=== PATIENT | male | born 1975 | race Caucasian/White ===

== ENCOUNTER 2016-06-06 10:50 | Emergency (ER) | payer BC ==
[~2016-06-06] VITALS: Ht 188 cm; Wt 91.1 kg
[2016-06-06 11:00] VITALS: TEMP 36.8; Ht 188 cm; Wt 91.1 kg
[2016-06-06] MEDS ORDERED: KETOROLAC TROMETHAMINE 30 MG/ML VIAL IV STA (11:47)
[2016-06-06] MEDS ORDERED: SODIUM CHLORIDE 0.9% 1000ML 1,000 ML IV STA (11:47)
--- NOTE | 2016-06-06 12:03 | DIAGNOSTIC IMAGING REPORT ---
CHEST ONE VIEW PORTABLE CLINICAL HISTORY: cough COMPARISON STUDY: 01/08/2007 FINDINGS: The cardiac and mediastinal contours are normal. There is no evidence of focal pulmonary consolidation. There is no evidence of failure. No pleural effusions are visualized.[ IMPRESSION: No active disease in the chest. Electronically signed by: Wicho King M.D. 06/06/2016 12:02 PM Dictated Date/Time: 06/06/2016 12:02 PM
[2016-06-06 12:12] VITALS: O2SAT 99
[2016-06-06 12:21] LABS: BASO % 0.3 %; BASO ABS # 0.03 K/uL (0-0.2); COMPLETE YES; EOS % 1.4 %; IG% 0.2 %; LYMPH % 12.5 %; LYMPH ABS # 1.26 K/uL (1.2-3.4); MEAN CELL VOLUME 84.7 fL (80-100); MEAN CORPUSCULAR HEMOGLOBIN 29.4 pg (25-34); MEAN CORPUSCULAR HGB CONC 34.8 g/dl (32-36); MEAN PLATELET VOLUME 10.4 fL (7.4-10.4); MONO % 11.4 %; NEUT % 74.2 %; PLATELET COUNT 287 K/uL (130-400); RED BLOOD COUNT 4.72 M/uL (4.7-6.1); WHITE BLOOD COUNT 10.07 K/uL (4.8-10.8)
[2016-06-06 12:34] LABS: BUN/CREATININE RATIO 12.6 (10-20); CALCIUM 8.8 mg/dl (8.5-10.1); CREATININE 0.97 mg/dl (0.60-1.40); POTASSIUM 3.5 mmol/L (3.5-5.1)
[2016-06-06 12:37] LABS: ALB/GLOB RATIO 1.1 (0.9-2)
[2016-06-06] MEDS ORDERED: OXYC-106 PO (12:43)
[2016-06-06] MEDS ORDERED: AMOX875T PO (12:43)
[2016-06-06] MEDS ORDERED: ACETAMINOPHEN 500 MG TAB PO STA (12:46)
[2016-06-06] MEDS ORDERED: HYDR-4383 PO (12:52)
[2016-06-06] MEDS ORDERED: HYDR-4452 PO (12:52)
--- NOTE | 2016-06-06 13:29 | EMERGENCY ROOM VISIT NOTE ---
History First contact with patient: 11:29 Chief Complaint: FLU LIKE SX Stated Complaint: FLU History of Present Illness The patient is a 40 year old male who presents to the Emergency Room with complaints of flulike symptoms for the past 2 days. He reports he has had a sore throat, nasal congestion and body aches. He states that he has had difficulty sleeping due to the symptoms. He does report he has had a mild cough. He has had a few episodes of diarrhea. The patient states that his symptoms have been progressively worsening. He does report that he spoke with a telemedicine provider a few days ago and he prescribed him Augmentin for a possible sinus infection. He has been taking this as prescribed. The patient states that he has been sweating, but has not taken his temperature. He did not receive a flu vaccine this year. He denies any nausea, vomiting, headache, neck pain, abdominal pain, chest pain or shortness of breath. Review of Systems A complete 10-point Review of Systems was discussed with the patient, with pertinent positives and negatives listed in the History of Present Illness. All remaining Review of Systems questions can be considered negative unless otherwise specified. Past Medical/Surgical History Medical Problems: (1) Accident at workplace (2) Adjustment disorder (3) Chronic back pain (4) DDD (degenerative disc disease) (5) Migraine (6) Pelvic fracture Surgical Problems: (1) S/P ACL repair (2) S/P appendectomy Family History Patient reports no known family medical history. Social History Smoking Status: Current Every Day Smoker Alcohol Use: none Drug Use: none Marital Status: in relationship Occupation Status: employed Current/Historical Medications Scheduled Amoxicillin & Pot Clavulanate (Augmentin 875-125 mg), 1 TAB PO BID Hydrocodone/Acetaminophen ([place] 10/325 Tab), 1 TAB PO Q4H Allergies Coded Allergies: No Known Allergies (Verified , 06/06/16) Physical Exam Vital Signs Date Time Temp Pulse Resp B/P Pulse Ox O2 Delivery O2 Flow Rate FiO2 06/06/16 13:53 85 18 109/70 97 06/06/16 12:57 73 18 136/83 98 Room Air 06/06/16 12:21 79 06/06/16 12:12 86 18 120/76 98 Room Air 06/06/16 12:12 99 Room Air 06/06/16 11:00 36.8 111 18 126/81 96 Room Air Physical Exam VITALS: Vitals are noted on the nurse's note and reviewed by myself. Vital signs stable. GENERAL: This is a 40-year-old male, in no acute distress, nondiaphoretic, well- developed well-nourished. SKIN: Capillary reflex less than 2 seconds. HEENT: Normocephalic. PERRLA. EOMI. Nares patent. Mucous membranes moist. Neck is supple without nuchal rigidity. No meningismus. HEART: Regular rate and rhythm without murmurs gallops or rubs. LUNGS: Clear to auscultation bilaterally without wheezes, rales or rhonchi. No retractions or accessory muscle use. ABDOMEN: Positive bowel sounds x 4. Soft, nontender to palpation. NEURO: Patient was alert and oriented to person place and time. Medical Decision & Procedures ER Provider Diagnostic Interpretation: CHEST ONE VIEW PORTABLE CLINICAL HISTORY: cough COMPARISON STUDY: 01/08/2007 FINDINGS: The cardiac and mediastinal contours are normal. There is no evidence of focal pulmonary consolidation. There is no evidence of failure. No pleural effusions are visualized.[ IMPRESSION: No active disease in the chest. Laboratory Results 06/06/16 12:01 Red Blood Count 4.72, Mean Corpuscular Volume 84.7, Mean Corpuscular Hemoglobin 29.4, Mean Corpuscular Hemoglobin Concent 34.8, Mean Platelet Volume 10.4, Neutrophils (%) (Auto) 74.2, Lymphocytes (%) (Auto) 12.5, Monocytes (%) (Auto) 11.4, Eosinophils (%) (Auto) 1.4, Basophils (%) (Auto) 0.3, Neutrophils # (Auto ) 7.47, Lymphocytes # (Auto) 1.26, Monocytes # (Auto) 1.15, Eosinophils # (Auto ) 0.14, Basophils # (Auto) 0.03 06/06/16 12:01 Test 06/06/16 12:01 06/06/16 12:05 06/06/16 12:08 White Blood Count 10.07 K/uL (4.8-10.8) Red Blood Count 4.72 M/uL (4.7-6.1) Hemoglobin 13.9 g/dL (14.0-18.0) Hematocrit 40.0 % (42-52) Mean Corpuscular Volume 84.7 fL (80-100) Mean Corpuscular Hemoglobin 29.4 pg (25-34) Mean Corpuscular Hemoglobin Concent 34.8 g/dl (32-36) Platelet Count 287 K/uL (130-400) Mean Platelet Volume 10.4 fL (7.4-10.4) Neutrophils (%) (Auto) 74.2 % Lymphocytes (%) (Auto) 12.5 % Monocytes (%) (Auto) 11.4 % Eosinophils (%) (Auto) 1.4 % Basophils (%) (Auto) 0.3 % Neutrophils # (Auto) 7.47 K/uL (1.4-6.5) Lymphocytes # (Auto) 1.26 K/uL (1.2-3.4) Monocytes # (Auto) 1.15 K/uL (0.11-0.59) Eosinophils # (Auto) 0.14 K/uL (0-0.5) Basophils # (Auto) 0.03 K/uL (0-0.2) RDW Standard Deviation 41.9 fL (36.4-46.3) RDW Coefficient of Variation 13.6 % (11.5-14.5) Immature Granulocyte % (Auto) 0.2 % Immature Granulocyte # (Auto) 0.02 K/uL (0.00-0.02) Anion Gap 8.0 mmol/L (3-11) Est Creatinine Clear Calc Drug Dose 115.4 ml/min Estimated GFR () 111.1 Estimated GFR (Non- 95.9 BUN/Creatinine Ratio 12.6 (10-20) Calcium Level 8.8 mg/dl (8.5-10.1) Total Bilirubin 0.3 mg/dl (0.2-1) Aspartate Amino Transf (AST/SGOT) 13 U/L (15-37) Alanine Aminotransferase (ALT/SGPT) 22 U/L (12-78) Alkaline Phosphatase 70 U/L (45-117) Total Protein 7.2 gm/dl (6.4-8.2) Albumin 3.7 gm/dl (3.4-5.0) Globulin 3.5 gm/dl (2.5-4.0) Albumin/Globulin Ratio 1.1 (0.9-2) Monoscreen NEG (NEG) Influenza Type A Antigen Neg for Influ A (NEG) Influenza Type B Antigen Neg for Influ B (NEG) Medications Administered Medications (Trade) Dose Ordered Sig/Brian Route Start Time Stop Time Status Last Admin Dose Admin Sodium Chloride (Nss 1000ml) 1,000 ml @ 999 mls/hr Q1H1M STAT IV 06/06/16 11:47 06/06/16 12:47 DC 06/06/16 12:09 999 MLS/HR Ketorolac Tromethamine (Toradol Inj) 30 mg NOW STAT IV 06/06/16 11:47 06/06/16 11:49 DC 06/06/16 12:09 30 MG Acetaminophen (Tylenol Tab) 1,000 mg NOW STAT PO 06/06/16 12:46 06/06/16 12:47 DC 06/06/16 12:50 1,000 MG Medical Decision Differential diagnosis includes influenza, viral syndrome, pneumonia, mononucleosis, sinusitis, strep pharyngitis, among others. The patient was evaluated as above. Labs were drawn and IV access was obtained. Imaging studies were performed and read by radiology as above. The patient was medicated with 2 L normal saline solution, 30 g Toradol IV and 1 g Tylenol. The patient was reassessed multiple times during their stay in the emergency department and remained in stable condition. The patient is a 40-year-old male who presents today complaining of flulike symptoms. He was afebrile on examination. Labs revealed no leukocytosis, anemia or concerning electrolyte abnormalities. Chest x-ray did not show evidence of pneumonia. Testing for influenza, mononucleosis and strep were negative. The patient did feel better after IV fluids, Toradol and Tylenol. He was informed that he most likely has a viral flulike illness. Since he did start the Augmentin for a possible sinus infection, I did recommend that he continue this medication. He was instructed to follow-up with his primary care provider for further evaluation or return here for worsening symptoms. Based on the patient's presentation, lab results, and imaging studies, I feel the patient is stable for outpatient treatment. Discharge instructions were reviewed with the patient. The patient verbalized understanding of my assessment and treatment plan and was discharged home in good condition. Impression Primary Impression: Influenza-like symptoms Departure Information Dispostion Home / Self-Care Condition GOOD Referrals Oneida Billy M.D. (MEDICAL) (PCP) Patient Instructions My [facility] Additional Instructions Rest and drink plenty of fluids. For pain control, you can use the following [id number] medicines (if >12 yo): - Regular strength (325mg/tab) Tylenol (acetaminophen) 2 tabs every 4-6 hours as needed. Do not exceed 12 tablets in a 24 hour period. Avoid taking more than 4 grams (4000 mg) of Tylenol per day. This includes any other sources of acetaminophen you may take on a regular basis. - Regular strength (200 mg/tab) Advil (ibuprofen) 1-2 tabs every 4-6 hours as needed. Do not exceed a dose of 3200 mg per day. Follow up with the primary care provider within one week.
[2016-06-06 13:53] VITALS: BP 109/70; PULSE 85; O2SAT 97
== END 2016-06-06 13:55 | disposition home or self-care (01) ==
LOC: C.EDB 10:51 → C.EDC 13:55
DX: J02.9 Acute pharyngitis, unspecified (principal); F17.210 Nicotine dependence, cigarettes, uncomplicated

== ENCOUNTER 2016-06-17 12:05 | Emergency (ER) | payer BC ==
[~2016-06-17] VITALS: Ht 188 cm; Wt 98.0 kg
[~2016-06-17 12:05] MED LIST: AMOX875T PO; HYDR-4383 PO
[2016-06-17 12:10] VITALS: BP 125/90; PULSE 85; TEMP 36.7; O2SAT 97; Ht 188 cm; Wt 98.0 kg
[2016-06-17] MEDS ORDERED: OXYCODONE/ACETAMINOPHEN 5-325 TAB PO ONE (13:15)
--- NOTE | 2016-06-17 13:47 | DIAGNOSTIC IMAGING REPORT ---
L-SPINE MIN 4 VIEWS ROUTINE CLINICAL HISTORY: Fall. Lumbar back pain. COMPARISON: Lumbar spine radiograph November 23, 2015. FINDINGS: Alignment of the lumbar spine is anatomic. Vertebral body heights are maintained. There is no fracture or suspicious lesion. The appearance of the lumbar spine is unchanged. Mild multilevel degenerative changes are present. IMPRESSION: 1. No acute lumbar spine fracture or subluxation. 2. Mild multilevel degenerative changes of the lumbar spine. Electronically signed by: Yoan Acharya M.D. 06/17/2016 1:46 PM Dictated Date/Time: 06/17/2016 1:41 PM
--- NOTE | 2016-06-18 12:47 | EMERGENCY ROOM VISIT NOTE ---
ED Visit Note First contact with patient: 12:34 Chief Complaint: Lower back pain. History of Present Illness: Mr. Yates is a 40-year-old white male who ambulates into the ED complaining of lumbar back pain. Historically patient reports she has a history of chronic back pain and is followed by pain management. Reviewing his records I see that in mid to late May she was prescribed a 30 day supply of fentanyl patches and [place] for his pain. Patient reports approximately 3 hours ago he was at home cleaning the gutters and fell off a six-foot ladder onto his back. He reports since that time he has been having diffuse lower back pain. He describes his pain as a sharp sensation. He has difficulty placing the specific location of pain but primarily on evaluation his pain seems to be between the L4 and S1 area over the spine and into the paraspinous culture. He rates his discomfort 8/10. His pain worsens with all movement of the back and palpation. He has not identified any alleviating factors related to the pain. He does report the pain does radiate into the back of the left thigh. He has not taken any medications for pain prior to arrival at the hospital. He denies any associated symptoms from the fall or the injury including loss of consciousness at the time of the fall, any signs of head injury since the fall, neck pain, chest pain, shortness of breath, abdominal pain, nausea, vomiting, extremity weakness/numbness/tingling, genital paresthesias, bowel and bladder dysfunction. Review of Systems: As noted above in history of present illness. All body systems were reviewed and found to be negative as noted above. Past Medical History: As previously noted, unspecified knee surgeries. Current Medications: As previously noted. Allergies to Medications: Patient denies. Social History: Patient is currently employed; he feels safe in his home environment; he admits to tobacco use and denies alcohol use. Physical Examination: Vital Signs: Date Time Temp Pulse Resp B/P Pulse Ox O2 Delivery O2 Flow Rate FiO2 06/17/16 12:10 36.7 85 20 125/90 97 Room Air GENERAL: 40-year-old male in moderate distress due to pain, nontoxic-appearing, afebrile and hemodynamically stable. NEUROLOGICAL: Awake, alert and oriented to person, place and time. Answering questions appropriately and following commands. Normal gait. Good hand eye coordination. No focal motor sensory deficits. Good short-term and long-term recall. Cranial nerves II through XII grossly intact. SKIN: Warm, dry and pink. No soft tissue eruptions or trauma noted. HEENT: Atraumatic and normocephalic. PERRLA. No observable facial trauma. No malocclusion. Airway patent. Speech is normal. Trachea midline. No jugular venous distention. BACK: No tenderness over the bony cervical and thoracic spine. Full range of motion of the cervical spine. No CVA tenderness. Moderate tenderness over the L4 through S1 area over the bony spine without crepitus, swelling, step-offs or bony deformity. There is also moderate tenderness throughout the bilateral paraspinous musculature in this area without obvious spasm. Decreased range of motion in all movements of the waist. He was not able to assist in a straight leg raise test due to his discomfort. THORAX: Lungs sounds are clear to auscultation and equal bilaterally with symmetrical chest wall. No crepitus, tenderness, subcutaneous air or deformities noted. HEART: Regular rate and rhythm. No gallops, rubs or murmurs are appreciated. ABDOMEN: Flat, soft and nontender. Positive bowel sounds in all quadrants. No guarding, rigidity or organomegaly. PELVIS: Stable and nontender to compression and rock. EXTREMITIES: Moves all extremities well on command and with purpose. All distal neurovascular statuses are intact and equal bilaterally. Lower Extremities: No bony tenderness over the hips, thighs, knees, ankles or feet. 4 /5 muscle strength in flexion, extension, abduction and abduction of the hips, flexion and extension of the knees and plantar flexion and dorsiflexion of the ankles. 2+ patellar and Achilles deep tendon reflexes intact and equal bilaterally. He was able to distinguish light sensations through all dermatomes of the feet. ED Course: Patient is assessed as noted above. Patient was given one 5/325 mg Percocet tablet by mouth for pain. Lumbar Spine X-Rays: Were reviewed by myself and read by the radiologist showing no acute fractures or subluxations. Multiple mild degenerative changes throughout the spine. Patient was educated about tonight's findings and instructed on his treatment plan; he verbalizes understanding and agreement with this plan. Clinical Impression: Lumbar back pain. Status post fall. Disposition: Patient discharged home in stable condition; prior to departure he was reassessed and subjectively reported he was feeling better and rated his discomfort 4/10. Plan: Patient was encouraged to continue his current medications as prescribed. Patient was encouraged to also alternate his Vicodin prescription with ibuprofen for inflammation. Patient was encouraged use ice on areas of pain for 5 times a day for 20-30 minutes. 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 Patient is encouraged return to ED for worsening pain, leg weakness/numbness/ tingling, genital paresthesias, bowel and bladder dysfunction or any new/ concerning symptoms.
== END 2016-06-17 14:22 | disposition home or self-care (01) ==
LOC: C.EDB 12:06 → C.EDD 14:22
DX: M54.5 Low back pain (principal); W11.XXXA Fall on and from ladder, initial encounter; Y92.018 Other place in single-family (private) house as the place of occurrence of the external cause; Y93.H9 Activity, other involving exterior property and land maintenance, building and construction; G89.29 Other chronic pain; F17.200 Nicotine dependence, unspecified, uncomplicated

== ENCOUNTER 2016-07-21 07:13 | Emergency (ER) | payer BC ==
[~2016-07-21] VITALS: Ht 188 cm; Wt 89.8 kg
[2016-07-21 07:19] VITALS: TEMP 36.8; Ht 188 cm; Wt 89.8 kg
[2016-07-21] MEDS ORDERED: HYDR-4383 PO (07:47)
--- NOTE | 2016-07-21 08:32 | DIAGNOSTIC IMAGING REPORT ---
CT OF THE CERVICAL SPINE WITHOUT CONTRAST CLINICAL HISTORY: Neck pain following fall. COMPARISON STUDY: Cervical spine radiographs June 16, 2005. TECHNIQUE: Helical axial images of the cervical spine were obtained without IV contrast. Sagittal and coronal reconstructions were viewed. FINDINGS: Alignment of the cervical spine is anatomic. Craniocervical junction is intact. There is no acute fracture within the cervical spine. Degenerative changes at the C1-C2 articulation are present. There is mild multilevel degenerative disc disease. There is no pneumothorax within visualized portions of the lung apices. IMPRESSION: No acute cervical spine fracture or subluxation. Electronically signed by: Yoan Acharya M.D. 07/21/2016 8:31 AM Dictated Date/Time: 07/21/2016 8:26 AM
[2016-07-21 08:55] VITALS: BP 114/70; PULSE 79; O2SAT 99
[2016-07-21] MEDS ORDERED: KETO10TA PO (08:57)
--- NOTE | 2016-07-21 16:00 | EMERGENCY ROOM VISIT NOTE ---
ED Visit Note First contact with patient: 07:25 Chief Complaint: Neck pain. History of Present Illness: Mr. Li is a 40-year-old white male who ambulates into the ED complaining of right sided neck pain. Historically patient reports he denies any previous neck disease or surgeries. Patient reports 2 days ago he was cleaning out a garage with his son. A box approximately weighing 10-15 pounds fell on the left side of his head and flexed his neck to the right. He reports since that time he has been having right sided neck pain. Currently he describes his pain as a stabbing sensation. His pain is constant. He rates his discomfort 8/10. The pain is nonradiating. The prominent fits his pain is located in the trapezius muscle between the shoulder and the neck. He reports he is taking prescribed Vicodin without relief of his discomfort. His pain worsens with palpation and all movements of the cervical spine. He has not identified any alleviating factors related to the pain. Associated with his pain he reports he has paresthesias in the right hand. She denies any loss of consciousness at the time of the injury and since the injury he has had no signs of head injury, chest pain, shortness of breath, abdominal pain, nausea/vomiting, upper extremity weakness. Review of Systems: As noted above in history of present illness. 8 body systems were reviewed and found to be negative as noted above. Past Medical History: (1) Accident at workplace (2) Adjustment disorder (3) Chronic back pain (4) DDD (degenerative disc disease) (5) Migraine (6) Pelvic fracture Surgical Problems: (1) S/P ACL repair (2) S/P appendectomy Current Medications: Medications Dose Route/Sig Max Daily Dose Days Date Category Toradol (Ketorolac Tromethamine) 10 Mg Tab 10 Mg PO Q6 PRN 07/21/16 Rx [place] 10/325 Tab (Acetaminophen/Hydrocodone Bitart) 1 Tab Tab 1 Tab PO 5XD 07/21/16 Reported Allergies to Medications: Patient denies. Social History: Patient is currently employed; he feels safe in his home environment; he admits to tobacco use. Physical Examination: Vital Signs: Date Time Temp Pulse Resp B/P Pulse Ox O2 Delivery O2 Flow Rate FiO2 07/21/16 08:55 79 18 114/70 99 Room Air 07/21/16 07:19 36.8 80 18 135/80 100 Room Air GENERAL: 40-year-old male in mild to moderate distress due to pain, nontoxic- appearing, afebrile and hemodynamically stable. NEUROLOGICAL: Awake, alert and oriented to person, place and time. Answering questions appropriately and following commands. Normal gait. Good hand eye coordination. No focal motor or sensory deficits. SKIN: Warm, dry and pink. No soft tissue eruptions or trauma noted. BACK: Mild tenderness over the C4 area of the bony cervical spine and no tenderness over the thoracic spine. There is moderate tenderness throughout the upper portion of the trapezius with no palpable spasm. Full range of motion of the cervical spine. . THORAX: Lungs sounds are clear to auscultation and equal bilaterally with symmetrical chest wall. UPPER EXTREMITIES: No gross bony deformity. No tenderness in the shoulders, elbows, forearms or wrists. 4/5 muscle strength in all movements of the shoulders, elbows, forearms and wrists. 2+ bicipital, tricipital and brachial radialis deep tendon reflexes intact and equal bilaterally. Distal pulses and capillary refill are intact. Patient does perceive paresthesias along the ulnar distribution of the hand but was able to appreciate light sensations. ED Course: Patient is assessed as noted above. Patient was placed in a rigid cervical collar. Cervical Spine CT without Contrast: Was reviewed by myself and read by the radiologist showing no acute fractures or subluxations. Mild to moderate degenerative changes throughout the cervical spine. Patient had his collar removed. Patient was then placed in a soft cervical collar. Patient was educated about today's findings and instructed on his treatment plan ; he verbalizes understanding and agreement with this plan. Clinical Impression: Right sided neck pain. Decision-Making: Initially my differential diagnosis I considered contusion, muscle strain, muscle spasm, vertebral fracture, herniated disc and other causes. Disposition: Patient discharged home in stable condition; prior to departure he was reassessed and subjectively reported he was feeling much better and rated his discomfort 3/10. Plan: Patient was placed in a cervical collar and encouraged to use it for 3 or 4 days until pain-free but not to use it while sleeping, showering/bathing or when eating. Additionally he was encouraged to remove the collar and do simple range of motion exercises for 5 times a day. Patient was prescribed Toradol 10 mg; alternating with his Vicodin for pain. Patient was encouraged use ice on his neck 5-6 times a day for 20-30 minutes. Patient was encouraged to follow-up with his PCP for recheck if no better in 3- 4 days. Patient was signed off work for 3 days and encouraged to have return to work instructions from his PCP. Patient was encouraged return the ED for worsening/uncontrolled pain, worsening hand tingling, arm/hand weakness or any new/concerning symptoms.
== END 2016-07-21 09:05 | disposition home or self-care (01) ==
LOC: C.EDB 07:14 → C.EDA 09:05
DX: M54.2 Cervicalgia (principal); W22.8XXA Striking against or struck by other objects, initial encounter; Y92.015 Private garage of single-family (private) house as the place of occurrence of the external cause; G43.909 Migraine, unspecified, not intractable, without status migrainosus; G89.29 Other chronic pain; Z72.0 Tobacco use

== ENCOUNTER → 2016-09-11 | Outpatient (CLI) | payer BC ==
[~2016-09-11] MED LIST changes: -AMOX875T PO; +KETO10TA PO
--- NOTE | 2016-09-11 08:20 | DIAGNOSTIC IMAGING REPORT ---
CERVICAL SPINE MRI HISTORY: Cervical radiculopathy CERVICAL SPINE PAIN TECHNIQUE: Multiplanar multisequence MRI of the cervical spine was performed without the use of contrast. COMPARISON STUDY: None. FINDINGS: Signal characteristics the vertebral bodies are unremarkable. Signal characteristics the cervical cord are within normal limits. Posterior bulging disc C5-C6 based on the sagittal images. C2-C3: No significant central canal or neural foraminal narrowing. C3-C4: No significant central canal or neural foraminal narrowing. C4-C5: No significant central canal or neural foraminal narrowing. C5-C6: Broad-based bulging disc. Partial effacement anterior subarachnoid space. Moderate narrowing of right and to lesser extent left neural foramina. C6-C7: No significant central canal or neural foraminal narrowing. C7-T1: No significant central canal or neural foraminal narrowing. IMPRESSION: 1. Broad-based bulging disc C5-C6 with moderate narrowing of the right neuroforamina. 2. Otherwise negative study Electronically signed by: Sandeep Ceja M.D. 09/11/2016 8:18 AM Dictated Date/Time: 09/11/2016 8:13 AM
== END | disposition home or self-care (01) ==
LOC: C.MRI 07:14
PROVIDERS: ATTEND Orthopaedic Surgery Orthopaedic Surgery of the Spine
DX: M50.122 Cervical disc disorder at C5-C6 level with radiculopathy (principal)

== ENCOUNTER 2016-10-14 05:27 | Observation (INO) | payer BC ==
[2016-09-29 13:55] VITALS: BMI 26.0
--- NOTE | 2016-09-29 14:22 | PAT Medication Instructions ---
Service Date Sep 29, 2016. Current Home Medication List Hydrocodone/Acetaminophen ([place] 10/325 Tab), 1 TAB PO 5XD PRN for Pain Medication Instructions For Your Scheduled Surgery - Take the following medications the morning of surgery with a sip of water OTHERWISE NOTHING TO EAT OR DRINK AFTER MIDNIGHT: Hydrocodone/Acetaminophen ([place] 10/325 Tab), 1 TAB PO 5XD PRN for Pain (may take if needed up to 4 hours prior to surgery) If you have any questions please call us at [phone] or [phone] or [phone]
[2016-09-29 15:04] LABS: BASO % 0.9 %; COMPLETE YES; EOS % 1.5 %; IG% 0.2 %; LYMPH % 22.3 %; LYMPH ABS # 2.47 K/uL (1.2-3.4); MEAN CELL VOLUME 87.4 fL (80-100); MEAN CORPUSCULAR HEMOGLOBIN 29.5 pg (25-34); MEAN CORPUSCULAR HGB CONC 33.7 g/dl (32-36); MEAN PLATELET VOLUME 10.4 fL (7.4-10.4); MONO % 5.6 %; NEUT % 69.5 %; PLATELET COUNT 352 K/uL (130-400); RED BLOOD COUNT 4.92 M/uL (4.7-6.1); WHITE BLOOD COUNT 11.06 K/uL (4.8-10.8)
[2016-09-29 16:10] LABS: BUN/CREATININE RATIO 15.1 (10-20); CALCIUM 8.9 mg/dl (8.5-10.1); CREATININE 0.93 mg/dl (0.60-1.40); POTASSIUM 3.7 mmol/L (3.5-5.1)
[~2016-10-14] VITALS: Ht 188 cm; Wt 91.6 kg
[2016-10-14] VITALS (14 sets, daily range): BP systolic 108–128; BP diastolic 67–83; PULSE 57–85; TEMP 36.3–36.9; O2SAT 95–99; Ht 188 cm; Wt 91.6 kg
[~2016-10-14 05:27] MED LIST changes: -KETO10TA PO
[2016-10-14] MEDS ORDERED: CEFAZOLIN 2000 MG/60 ML D5W IV SCH (06:00)
[2016-10-14] MEDS ORDERED: LACTATED RINGER'S 1000ML 1,000 ML IV SCH (06:00)
[2016-10-14] MEDS ORDERED: CeleBREX 200 MG CAP PO SCH (06:00)
[2016-10-14] MEDS ORDERED: PREGABALIN 75 MG CAP PO SCH (06:00)
[2016-10-14] MEDS ORDERED: PROMETHAZINE HCL INJ 12.5 MG in SODIUM CHLORIDE 0.9% 50ML 50 ML IV PRN (06:30)
[2016-10-14] MEDS ORDERED: EpHEDrine SULFATE INJ 50 MG/ML AMP IV PRN (06:30)
[2016-10-14] MEDS ORDERED: ONDANSETRON INJ 2 MG/ML 2 ML VIAL IV PRN ×2 (06:30→09:30)
[2016-10-14] MEDS ORDERED: ATROPINE SULFATE 0.1 MG/ML 5ML SYR IV PRN (06:30)
[2016-10-14] MEDS ORDERED: BACITRACIN 50000 UNIT VIAL ONE (06:56)
[2016-10-14] MEDS ORDERED: THROMBIN 5000 UNITS KIT ONE (06:56)
[2016-10-14] MEDS ORDERED: PROPOFOL IV EMULSION 10 MG/ML 20 ML VIAL IV ONE (07:09)
[2016-10-14] MEDS ORDERED: DEXAMETHASONE SOD INJ 4 MG/ML VIAL ONE (07:09)
[2016-10-14] MEDS ORDERED: LIDOCAINE HCL 2% 2 ML VIAL (20MG/ML) ONE (07:09)
[2016-10-14] MEDS ORDERED: ONDANSETRON INJ 2 MG/ML 2 ML VIAL ONE ×2 (07:09→08:59)
[2016-10-14] MEDS ORDERED: MIDAZOLAM HCL 1 MG/ML 2ML VIAL ONE (07:09)
[2016-10-14] MEDS ORDERED: NEOSTIGMINE METHYLSULFATE 1 MG/ML 10ML VIAL ONE (07:09)
[2016-10-14] MEDS ORDERED: GLYCOPYRROLATE INJ 0.2 MG/ML VIAL ONE ×2 (07:09→08:59)
[2016-10-14] MEDS ORDERED: ROCURONIUM BROMIDE 10 MG/ML 5 ML VIAL ONE (07:09)
[2016-10-14] MEDS ORDERED: FENTANYL CITRATE INJ 50 MCG/1 ML 2 ML VIAL ONE (07:10)
--- NOTE | 2016-10-14 07:17 | History & Physical Bridge Note ---
H&P Re-Evaluation Bridge Note: I have examined the patient, reviewed the History & Physical and in the interval since the performance of the History & Physical I have noted the following changes of clinical significance: No changes noted
[2016-10-14] MEDS ORDERED: SCOPOLAMINE 1.5 MG TDSY TD ONE ×2 (07:20→07:30)
[2016-10-14] MEDS ORDERED: LARYING-O-JET KIT (LTA) ONE ×2 (07:52)
[2016-10-14] MEDS ORDERED: PHENYLEPHRINE 100MCG/ML 5ML SYR ONE (07:52)
[2016-10-14] MEDS ORDERED: HYDROmorphone INJ 2 MG/ML SYR/VIAL ONE ×2 (08:03→09:13)
[2016-10-14] MEDS ORDERED: SODIUM CHLORIDE 0.9% INJ 10 ML VIAL ONE (08:05)
--- NOTE | 2016-10-14 08:46 | [facility] Post Operative Brief Note ---
Immediate Operative Summary Operative Date Oct 14, 2016. Pre-Operative Diagnosis C5-6 disc herniation with faily severe radiculopathy Post-Operative Diagnosis C5-6 disc herniation with faily severe radiculopathy Procedure(s) Performed C5-C6 Anterior Cervical Discectomy and Fusion with Allograft and [place] Surgeon Dr Maco Canas D[place] Assistant Surgeon(s) None Estimated Blood Loss 7.5ML Findings same Specimens none per surgeon Dr. Maco Canas
--- NOTE | 2016-10-14 08:48 | [facility] Operative Report ---
Operative Report Operative Date Oct 14, 2016. 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 Anterior cervical discectomy and fusion with application of PEEK intervertevral spacer C5-6 with local autograft and DBM putty 2. Anterior instrumentation C5-6 with LDR blade plates Surgeon Dr Maco Canas [employer]lies Sales Surgeon(s) None Estimated Blood Loss 7.5ML Findings see below Specimens none per surgeon Dr. Maco Canas Drains 1 Complication(s) None Description of Procedure PROCEDURE: After identification of the patient and operative level, patient was brought to the OR where they underwent induction of general anesthesia. Patient was then positioned supine on the [facility] OR table with all bony prominences well padded. Care was taken to avoid pressure on all bony prominences. Arms tucked to the sides and well padded. Shoulders were taped distally. Anterior neck was sterilely prepped and draped in usual fashion. Antibiotics were administered. Timeout was performed. Level was confirmed. A transverse skin incision was made on the right side of the neck at the level of the cricoid cartilage. I divided the platysma in line with the incision and performed routine anterior cervical exposure, blunt dissection of medial sternocleidomastoid. I identified the presumptive disc spaces and marked it with a marker and fluoroscopy. I then mobilized the longus colli and placed a self-retaining anterior cervical retractor and placed Stanley pins in the body of C5 on C6. After placement of the pins, I applied slight distraction across the pins and then did a complete discectomy at Level, took down the posterior osteophytes with a nimco, removed the posterior annulus and the PLL, and did foraminotomies as necessary to decompress the foramina bilaterally. I passed the probe along the nerve roots, made sure they were free of compression, and decorticated the endplates at C5-6 with a high speed nimco and determined graft size with trial sizers. I then tamped PEEK cage filled with local bone and DBM putty into position and checked position with fluoroscopy, released Stanley distraction, applied bone wax over the holes and then inserted LDR blade plates through the cage into the vertebral body of C5- 6. After insertion of the blades, I obtained final x-rays, I irrigated, applied FloSeal for hemostasis, put a small round drain and closed in layered fashion. All sponge and needle counts were correct at the end of the case. I attest to the content of the Intraoperative Record and any orders documented therein. Any exceptions are noted below.
--- NOTE | 2016-10-14 08:56 | DIAGNOSTIC IMAGING REPORT ---
INTRAOPERATIVE CERVICAL SPINE 2 VIEWS CLINICAL HISTORY: ACDF C5-C6 COMPARISON STUDY: No previous studies for comparison. FINDINGS: 2 intraoperative fluoroscopic spot images are provided for interpretation. 16 seconds of fluoroscopic time was utilized. An endotracheal tube is visualized. There is a surgical drain projected over the right neck. There are postsurgical changes of a C5-C6 discectomy and interbody implant. IMPRESSION: Postsurgical changes of a C5-C6 discectomy and interbody implant Electronically signed by: Wicho King M.D. 10/14/2016 8:55 AM Dictated Date/Time: 10/14/2016 8:54 AM
[2016-10-14] MEDS: FENTANYL CITRATE INJ 50 MCG/1 ML 2 ML VIAL IV PRN ×4 (08:58→09:13)
[2016-10-14] MEDS: HYDROmorphone INJ 1 MG/ML SYR IV PRN ×7 (09:18→21:31)
--- NOTE | 2016-10-14 09:22 | Discharge Instructions ---
Discharge Instructions Date of Service Oct 14, 2016. Admission Reason for Admission: Cervical Spinal Stenosis Discharge Discharge Diagnosis / Problem: same Discharge Goals Goal(s): Decrease discomfort Activity Recommendations Activity Limitations: per Instructions/Follow-up section . Instructions / Follow-Up Instructions / Follow-Up ACTIVITY RECOMMENDATIONS: SELF CARE INSTRUCTIONS AFTER CERVICAL FUSIONS 1. No smoking. Smoking drastically decreases the chance of a solid fusion. 2. No bending, lifting more than 5 pounds, or twisting (roll like a log when turning in bed). 3. You may shower 3 days after surgery. Thoroughly dry wound. Do not soak in the tub. 4. Cervical collar: Must be worn at all times including sleeping. You may remove the brace only to bath, eat and if you are sitting in a recliner. 5. Please walk as much as you can for exercise. Gradually increase the distance that you walk as your endurance increases. SPECIAL CARE INSTRUCTIONS: VERY IMPORTANT TO READ AND REVIEW A. Do not take any anti-inflammatory medications (i.e. Indocin, Advil, Aspirin, Naprosyn, Aleve, Motrin, etc.) as these may inhibit the chance of a solid fusion. Tylenol is okay to take. B. Your surgical incision has been closed with a cosmetic suture under the skin that will dissolve in about 6 weeks. In 14 days, you can use a pair of clean scissors and cut the suture that is left outside of the skin at the ends of your incision. C. Complications are uncommon, but please contact us if you have any signs or symptoms of: 1. wound infection (fever higher than 102.5 degrees F, redness, separation of wound, drainage, or increasing pain from the incision) 2. blood clots in legs (pain, swelling, redness and warmth in legs) 3. urinary tract infection (fever higher than 102.5 degrees, burning upon urination or increased frequency of urination) 4. nerve problems (inability to walk on your toes or heels, numbness, loss of bowel or bladder control) 5. any other symptoms that concern you. D. Please call the office at if you have any concerns or questions about your operation or recovery. MANAGING PAIN AFTER SPINAL SURGERY 1. Narcotic medication is intended for short-term use and will be provided for surgical pain. Surgical pain usually lasts for a period of 4-6 weeks. Narcotic medication includes Percocet, Vicodin, Darvocet, Tylenol #3 or Lortab. 2. Longer-term pain is more appropriately treated with non-narcotic medication such as Tylenol ES. 3. Muscle spasm is not appropriately treated with narcotics. Muscle relaxers such as Soma, Flexeril or Skelaxin can be used along with Tylenol ES. 4. Remember that we all live with some "aches and pains". This is not unusual or uncommon after an injury or as we get older. 5. We will provide appropriate medication within the normal guidelines of their prescribed use. We will also be very cautious and aware of potential abuse and extended duration of patients' medication needs. 6. Please allow 2-3 days to process refills. Prescriptions will not be mailed but must be picked up at the office. FOLLOW UP VISIT: Keep your scheduled follow-up appointment. Any questions, please call the office at . Current Hospital Diet Patient's current hospital diet: Regular Diet Discharge Diet Recommended Diet: Regular Diet Procedures Procedures Performed: 1. Anterior cervical discectomy and fusion with application of PEEK intervertevral spacer C5-6 with local autograft and DBM putty 2. Anterior instrumentation C5-6 with LDR blade plates Pending Studies Studies pending at discharge: no Medical Emergencies . Who to Call and When: Medical Emergencies: If at any time you feel your situation is an emergency, please call 911 immediately. . Non-Emergent Contact Non-Emergency issues call your: Surgeon . "Provider Documentation" section prepared by Maco Canas. . VTE Core Measure Inpt VTE Proph given/why not?: Raine Demarco, SCD's [place] Drug Monitoring Program Search Results: patient reviewed within database, no issues identified ( patient being prescribed meds by pain contract physician and will continue with this)
[2016-10-14] MEDS ORDERED: DEXAMETHASONE INJ 8 MG in SYRINGE 0 ML IV PRN (09:30)
[2016-10-14] MEDS ORDERED: HYDROmorphone INJ 0.5 MG/0.5 ML SYR IV PRN (09:30)
[2016-10-14] MEDS ORDERED: ACETAMINOPHEN IV 1,000 MG in EMPTY BAG 0 ML IV PRN (09:30)
[2016-10-14] MEDS ORDERED: RACEPINEPHRINE 2.25% NEBU SOLN 0.5 ML VIAL INH PRN (09:30)
[2016-10-14] MEDS ORDERED: NALOXONE HCL 0.4 MG/1 ML VIAL/CARP IV PRN (09:30)
[2016-10-14] MEDS ORDERED: DiphenhydrAMINE HCL 50 MG/ML VIAL IV PRN (09:30)
[2016-10-14] MEDS ORDERED: LORAZEPAM INJ 0.5 MG in SYRINGE 0.75 ML IV PRN (09:30)
[2016-10-14] MEDS ORDERED: LORAZEPAM 0.5 MG TAB PO PRN (09:30)
[2016-10-14] MEDS ORDERED: HYDROmorphone INJ 1 MG/ML SYR IV PRN (09:45)
--- NOTE | 2016-10-14 10:01 | Anesthesiology Progress Note ---
Anesthesia Post Op Note Date & Time Oct 14, 2016 at 10:01 Vital Signs Pain Intensity: 5 Vital Signs Past 12 Hours Date Time Temp Pulse Resp B/P (MAP) Pulse Ox O2 Delivery O2 Flow Rate FiO2 10/14/16 09:40 56 16 114/82 98 Nasal Cannula 4 10/14/16 09:30 58 16 130/83 99 Nasal Cannula 4 10/14/16 09:20 60 16 128/84 99 Nasal Cannula 4 10/14/16 09:10 65 16 136/90 100 Oxymask 10 10/14/16 09:00 69 16 128/89 100 Oxymask 10 10/14/16 08:51 36.0 69 16 118/83 100 Oxymask 10 10/14/16 06:10 36.7 73 20 122/67 95 Room Air Notes Mental Status: alert / awake / arousable, participated in evaluation Pt Amnestic to Procedure: Yes Nausea / Vomiting: adequately controlled Pain: adequately controlled Airway Patency, RR, SpO2: stable & adequate BP & HR: stable & adequate Hydration State: stable & adequate Anesthetic Complications: no major complications apparent
[2016-10-14] MEDS ORDERED: OXYCODONE HCL IR 5 MG TAB (IMMEDIATE RELEASE) ONE (11:15)
[2016-10-14] MEDS ORDERED: NURSING VERBAL MED ORDER ONE (12:15)
[2016-10-14] MEDS: SODIUM CHLORIDE 0.9% 1000ML 1,000 ML IV SCH ×2 (12:26→21:31)
[2016-10-14] MEDS ORDERED: IV FLUIDS COMPLETED PRN (12:30)
[2016-10-14] MEDS: NICOTINE 21 MG/24 HR TDSY EXT SCH (13:23)
[2016-10-14 14:39] LABS: URINE APPEARANCE CLEAR (CLEAR); URINE BILIRUBIN NEG (NEG); URINE COLOR DK YELLOW; URINE EPITHELIAL CELL AUTO >30 /lpf (0-5); URINE NITRITE NEG (NEG); URINE SPECIFIC GRAVITY 1.037 (1.000-1.030); UROBILINOGEN NEG (NEG)
[2016-10-14 14:43] LABS: MANUAL MICROSCOPIC REQUIRED? NO; REVIEW REQ? YES
[2016-10-14 15:10] LABS: URINE MUCUS PRESENT (NONE PRSENT)
[2016-10-14] MEDS: OXYCODONE HCL IR 5 MG TAB (IMMEDIATE RELEASE) PO PRN ×3 (15:19→23:36)
[2016-10-14] MEDS: CEFAZOLIN IV 1,000 MG in DEXTROSE 5% 50ML 50 ML IV SCH ×2 (15:30→23:24)
[2016-10-14] MEDS: DEXAMETHASONE INJ 6 MG in SYRINGE 0 ML IV SCH ×2 (15:30→23:24)
[2016-10-15] VITALS (9 sets, daily range): BP systolic 101–123; BP diastolic 62–89; PULSE 60–84; TEMP 36.4–36.6; O2SAT 94–97
[2016-10-15] MEDS: HYDROmorphone INJ 1 MG/ML SYR IV PRN (01:23)
[2016-10-15] MEDS: OXYCODONE HCL IR 5 MG TAB (IMMEDIATE RELEASE) PO PRN ×2 (03:39→08:01)
--- NOTE | 2016-10-15 05:34 | Orthopedic Progress Note ---
Orthopedic Progress Note Date of Service Oct 15, 2016. Subjective Post OP Day: 1 Reports: feeling well, pain controlled w PO medications, Denies: complaints, chest pain, SOB, nausea / vomiting, light headedness, calf pain, using PIN MAKER Objective N/V intact, dressing C/D/I, A&O x3, hemovac drainage no sig neck swelling, no hoarseness Date Time Temp Pulse Resp B/P (MAP) Pulse Ox O2 Delivery O2 Flow Rate FiO2 10/15/16 03:20 36.4 65 16 123/73 97 Humidified Oxygen 2.0 10/15/16 03:14 65 16 97 Nasal Cannula 2.0 10/15/16 01:20 36.5 84 16 122/89 95 Humidified Oxygen 2.0 10/14/16 23:44 68 16 95 Nasal Cannula 2.0 10/14/16 23:20 36.9 80 18 115/75 95 Nasal Cannula 2.0 Humidified Air 10/14/16 23:20 Nasal Cannula 2.0 Humidified Oxygen 10/14/16 21:20 36.9 79 18 118/76 96 Room Air 10/14/16 20:00 Room Air 10/14/16 19:24 62 16 95 Room Air 10/14/16 19:17 36.8 85 18 109/75 95 Room Air 10/14/16 17:20 36.5 57 20 128/76 97 Room Air 10/14/16 15:20 60 15 97 Nasal Cannula 4.0 10/14/16 15:20 36.5 73 20 108/73 97 Room Air 10/14/16 13:20 36.5 57 18 126/83 97 Nasal Cannula 1.0 Humidified Oxygen 10/14/16 12:20 36.3 57 18 120/82 98 Nasal Cannula 2.0 Humidified Oxygen 10/14/16 11:38 60 15 98 Nasal Cannula 4.0 10/14/16 11:20 36.4 57 18 120/82 99 Nasal Cannula 4.0 Humidified Oxygen 10/14/16 10:50 36.5 68 18 123/83 98 Nasal Cannula 4.0 Humidified Oxygen 10/14/16 10:20 Nasal Cannula 4.0 Humidified Oxygen 10/14/16 10:20 36.8 61 18 113/77 99 Nasal Cannula 4.0 10/14/16 10:20 36.8 61 18 113/77 (89) 99 Nasal Cannula 4.0 Humidified Oxygen 10/14/16 10:20 99 Nasal Cannula 4.0 10/14/16 10:00 36.4 57 16 100/81 98 Nasal Cannula 4 10/14/16 09:50 57 16 111/70 98 Nasal Cannula 4 10/14/16 09:40 56 16 114/82 98 Nasal Cannula 4 10/14/16 09:30 58 16 130/83 99 Nasal Cannula 4 10/14/16 09:20 60 16 128/84 99 Nasal Cannula 4 10/14/16 09:10 65 16 136/90 100 Oxymask 10 10/14/16 09:00 69 16 128/89 100 Oxymask 10 10/14/16 08:51 36.0 69 16 118/83 100 Oxymask 10 10/14/16 06:10 36.7 73 20 122/67 95 Room Air Assessment & Plan Assessment: stable Plan: d/c home after ambulating and breakfast Discharge Planning Discharge Planning: home DVT Prophylaxis: SCDs
--- NOTE | 2016-10-15 05:53 | Discharge Summary ---
Orthopedic Discharge Summary Admission Date/Reason Oct 14, 2016 at 09:20 Cervical Spinal Stenosis. Discharge Date/Disposition Oct 15, 2016 Home Diagnosis Principal Diagnosis: same Procedure(s) Performed ACDF Medication Reconciliation Continued Medications: Hydrocodone/Acetaminophen ([place] 10/325 Tab) 1 Tab Tab 1 TAB PO 5XD PRN for Pain, #150 Admission Physical Exam As per Admitting History & Physical. Hospital Course He was admitted for elective cervical fusion, tolerated procedure well, was stable on the floor, tolerated a diet, had pain controlled and was discharged in stable condition. Discharge Instructions Please refer to the electronic Patient Visit Report (Discharge Instructions) for additional information.
[2016-10-15] MEDS: NICOTINE 21 MG/24 HR TDSY EXT SCH (08:01)
[2016-10-15] MEDS: DEXAMETHASONE INJ 6 MG in SYRINGE 0 ML IV SCH (08:01)
[2016-10-15] MEDS: CEFAZOLIN IV 1,000 MG in DEXTROSE 5% 50ML 50 ML IV SCH (08:07)
--- NOTE | 2016-10-15 10:20 | Anesthesiology Progress Note ---
Anesthesia Post Op Note Date & Time Oct 15, 2016 at 10:19 Vital Signs Pain Intensity: 6.0 Vital Signs Past 12 Hours Date Time Temp Pulse Resp B/P (MAP) Pulse Ox O2 Delivery O2 Flow Rate FiO2 10/15/16 08:59 36.5 70 18 116/72 (87) 94 Room Air 10/15/16 08:30 95 Room Air 10/15/16 08:25 36.5 72 18 95 Room Air 10/15/16 07:44 36.5 72 18 112/72 (85) 95 Room Air 10/15/16 07:20 67 16 95 Room Air 10/15/16 07:07 Room Air 10/15/16 05:20 36.6 60 16 101/62 95 Humidified Oxygen 2.0 10/15/16 03:20 36.4 65 16 123/73 97 Humidified Oxygen 2.0 10/15/16 03:14 65 16 97 Nasal Cannula 2.0 10/15/16 01:20 36.5 84 16 122/89 95 Humidified Oxygen 2.0 10/14/16 23:44 68 16 95 Nasal Cannula 2.0 10/14/16 23:20 36.9 80 18 115/75 95 Nasal Cannula 2.0 Humidified Air 10/14/16 23:20 Nasal Cannula 2.0 Humidified Oxygen Notes Mental Status: alert / awake / arousable, participated in evaluation Pt Amnestic to Procedure: Yes Nausea / Vomiting: adequately controlled Pain: adequately controlled Airway Patency, RR, SpO2: stable & adequate BP & HR: stable & adequate Hydration State: stable & adequate Anesthetic Complications: no major complications apparent
== END 2016-10-15 10:30 | disposition home or self-care (01) ==
LOC: C.ACU 05:27 → C.3E 09:20 → ENRESERV 09:55
PROVIDERS: ADMIT Orthopaedic Surgery Orthopaedic Surgery of the Spine; ATTEND Orthopaedic Surgery Orthopaedic Surgery of the Spine
PROC: 0RT30ZZ Resection of Cervical Vertebral Disc, Open Approach (ICD-10-PCS; principal; 2016-10-14 07:30)
PROC: 0RG10A0 Fusion of Cervical Vertebral Joint with Interbody Fusion Device, Anterior Approach, Anterior Column, Open Approach (ICD-10-PCS; principal; 2016-10-14 07:30)
DX: M50.122 Cervical disc disorder at C5-C6 level with radiculopathy (principal); F17.200 Nicotine dependence, unspecified, uncomplicated; Z79.891 Long term (current) use of opiate analgesic

== ENCOUNTER → 2016-12-01 | Outpatient (CLI) | payer BC ==
--- NOTE | 2016-12-01 20:47 | DIAGNOSTIC IMAGING REPORT ---
MRI OF THE CERVICAL SPINE WITHOUT IV CONTRAST CLINICAL HISTORY: Neck pain. Numbness and tingling in the right arm. Recent cervical spine fusion surgery. COMPARISON STUDY: MRI of the cervical spine dated 09/11/2016. TECHNIQUE: MRI of the cervical spine is performed using various T1 and T2-weighted sequences in the axial, sagittal, and coronal planes. IV contrast was not administered for this examination. The examination is degraded by motion artifact. FINDINGS: Cervical spine: Vertebral body height and alignment are maintained throughout the cervical spine. There are postoperative changes from anterior fusion at C5-C6. No destructive bony lesion is seen. The atlantodental reticulation appears preserved. The spinous processes are intact. Intervertebral discs: There is evidence of discectomy at C5-C6. The remaining discs are normal in height and signal intensity. Cervical spine: The cervical spinal cord is normal in morphology and signal intensity. C2-C3: Unremarkable. C3-C4: Unremarkable. C4-C5: Unremarkable. C5-C6: The central canal is widely patent. There is at least moderate right-sided neural foraminal stenosis suggested, likely related to a laterally extruded disc fragment. The left neural foramen is widely patent. This is best seen on axial image #140 and sagittal T2 image #8. C6-C7: Unremarkable. C7-T1: Unremarkable. Soft tissues: The prevertebral and paraspinous soft tissues are within normal limits. Brain parenchyma: Partially imaged brain parenchyma of the skull base is normal as visualized. There is opacification of the visualized right maxillary antrum. IMPRESSION: 1. There are interval changes from anterior fusion at C5-C6 as compared to the prior examination. 2. Moderate right neural foraminal stenosis is suggested at C5-C6, possibly related to a disc fragment. Dictated: 12/01/2016 7:45 PM Transcribed: 12/01/2016 8:46 PM Susanna Electronically signed by: Ken Cisneros M.D. 12/01/2016 8:53 PM Dictated Date/Time: 12/01/2016 7:45 PM
== END | disposition home or self-care (01) ==
LOC: C.MRI 17:35
PROVIDERS: ATTEND Orthopaedic Surgery Orthopaedic Surgery of the Spine
DX: M54.2 Cervicalgia (principal)